=== PATIENT | female | born 1975 | race Caucasian/White ===

== ENCOUNTER 2020-11-27 09:46 | Emergency (ER) | payer SELFPAY ==
[~2020-11-27] VITALS: Ht 160 cm; Wt 109.8 kg
[~2020-11-27 09:46] MED LIST: AUGMENTIN 875875 MG PO; BACTRIM DS 8001 TA1 PO; [UNRECOGNIZED DRUG - OTHER] PO
[2020-11-27 10:22] LABS: BILIRUBIN Negative (Negative); BLOOD 1+ (Negative); CLARITY Turbid (Clear); COLOR Yellow (Yellow); GLUCOSE Negative (Negative); KETONE Negative (Negative); LEUKO ESTERASE 2+ (Negative); NITRITE Positive (Negative); PH 5.5 (4.5-8.0); SPECIFIC GRAVITY 1.015 (1.001-1.030)
[2020-11-27 10:31] LABS: EPITHELIAL CELLS 16-20; WBC 31-40 wbc/hpf (0-5)
[2020-11-27 10:32] LABS: BACTERIA 4+
[2020-11-27 10:35] LABS: BASO % 0.4 % (0.0-1.0); LYMPH # 1.3 10*3/uL (1.3-4.4); LYMPH % 16.2 % (27.0-41.0); MEAN CELL VOLUME 82.4 fl (81.0-99.0); MEAN CORPUSCULAR HGB 28.6 pg (27.0-31.0); MEAN CORPUSCULAR HGB CONC 34.7 g/dl (33.0-37.0); MONO # 1.3 10*3/uL (0.1-1.0); MONO % 16.2 % (3.0-9.0); NEUT # 5.2 10*3/uL (2.3-7.9); NEUT % 66.9 % (47.0-73.0); PLATELET COUNT AUTOMATED 249 10*3/uL (130-400); RED BLOOD COUNT 4.61 10*6/uL (4.10-5.10); RED CELL DISTRI WIDTH 12.7 % (0-14.5); WHITE BLOOD COUNT 7.8 10*3/uL (4.8-10.8)
[2020-11-27 10:52] LABS: ALBUMIN 3.4 gm/dl (3.1-4.5); ALKALINE PHOSPHATASE 79 U/L (45-117); BUN 9 mg/dl (7-24); CHLORIDE 105 mmol/L (98-107); CREATININE 0.93 mg/dL (0.55-1.02); LIPASE 50 U/L (73-393); POTASSIUM 3.5 mmol/L (3.5-5.1); SGOT/AST 24 IU/L (3-35); SGPT/ALT 36 U/L (12-78); SODIUM 135 mmol/L (136-145); TOTAL PROTEIN 8.1 gm/dL (6.4-8.2)
[2020-11-27] MEDS ORDERED: SEPTDS PO (11:33)
[2020-11-27] MEDS ORDERED: PHENERGAN25 M3 PO (11:33)
[2020-11-27] MEDS ORDERED: PYRIDIUM200 M1 PO (11:33)
[2020-11-27] MEDS ORDERED: CYMBALTA60 MG PO (11:33)
== END 2020-11-27 11:34 | disposition home or self-care (01) ==
LOC: ED 09:46
PROVIDERS: Emergency Medicine
DX: N39.0 Urinary tract infection, site not specified (principal); K80.80 Other cholelithiasis without obstruction; R51.9 Headache, unspecified; R50.9 Fever, unspecified; F31.9 Bipolar disorder, unspecified; Z79.2 Long term (current) use of antibiotics; Z98.890 Other specified postprocedural states